=== PATIENT | female | born 1975 | race Caucasian/White ===

== ENCOUNTER 2018-08-21 20:30 | Emergency (ER) | payer OTHER ==
[~2018-08-21] VITALS: Ht 157.5 cm; Wt 88.0 kg
[2018-08-21 20:32] VITALS: BP 140/85
[2018-08-21] MEDS ORDERED: DEXAMETHASONE 4 MG TABLET PO ONE (22:30)
[2018-08-21] MEDS ORDERED: PRED20TA PO (22:33)
--- NOTE | 2018-08-21 22:33 | PHYS DOC ---
Past Medical History Past Medical History: No Pertinent History (YOHANNES AGUIAR APRN) Past Surgical History: No Surgical History Additional Past Surgical Histo: Pt denies. (YOHANNES AGUIAR APRN) Alcohol Use: None Drug Use: None (YOHANNES AGUIAR APRN) Adult General Chief Complaint Chief Complaint: ITCHING HPI HPI Patient is a 43 year old female presents with a chief complaint of itching. The patient states that she was building a deck on Wednesday and is allergic to certain types a wood, started itching. The patient states the itching has gotten worse today and rates the itching has 3 out of 10 currently after she took a Benadryl 25 mg at home around 8:30. However before that the itching is 9 out of 10 in severity. The location of the itching which also has a rash is located on left arm, bilateral knees and legs, and chest. Also has rash on abdomen. (YOHANNES AGUIAR APRN) Review of Systems Review of Systems Constitutional: Denies fever or chills [] Eyes: Denies change in visual acuity, redness, or eye pain [] HENT: Denies nasal congestion or sore throat [] Respiratory: Denies cough or shortness of breath [] Cardiovascular: No additional information not addressed in HPI [] GI: Denies abdominal pain, nausea, vomiting, bloody stools or diarrhea [] : Denies dysuria or hematuria [] Musculoskeletal: Denies back pain or joint pain [] Integument: Reports rash that itches Neurologic: Denies headache, focal weakness or sensory changes [] Endocrine: Denies polyuria or polydipsia [] Complete systems were reviewed and found to be within normal limits, except as documented in this note. (YOHANNES AGUIAR APRN) Current Medications Current Medications Current Medications Medications (Trade) Dose Ordered Sig/David Start Time Stop Time Status Last Admin Dose Admin Dexamethasone (Decadron) 10 mg 1X ONCE 08/21/18 22:30 08/21/18 22:31 DC 08/21/18 22:25 10 MG (STONE BARBOSA MD) Allergies Allergies Allergies Coded Allergies Type Severity Reaction Last Updated Verified cephalexin Allergy Unknown 08/21/18 Yes (STONE BARBOSA MD) Physical Exam Physical Exam Constitutional: Well developed, well nourished, no acute distress, non-toxic appearance. [] HENT: Normocephalic, atraumatic, bilateral external ears normal, oropharynx moist, no oral exudates, nose normal. [] Eyes: PERRLA, EOMI, conjunctiva normal, no discharge. [] Neck: Normal range of motion, no tenderness, supple, no stridor. [] Cardiovascular:Heart rate regular rhythm, no murmur [] Lungs & Thorax: Bilateral breath sounds clear to auscultation [] Skin: Warm, dry, hives diffusely body wide. Extremities: No tenderness, no cyanosis, no clubbing, ROM intact, no edema. [] Neurologic: Alert and oriented X 3, normal motor function, normal sensory function, no focal deficits noted. [] Psychologic: Affect normal, judgement normal, mood normal. [] (YOHANNES AGUIAR APRN) Current Patient Data Vital Signs Vital Signs Date Time Temp Pulse Resp B/P (MAP) Pulse Ox O2 Delivery O2 Flow Rate FiO2 08/21/18 20:32 98.3 80 16 140/85 (103) 99 Room Air 98.3 (STONE BARBOSA MD) EKG EKG [] (YOHANNES AGUIAR APRN) Radiology/Procedures Radiology/Procedures [] (YOHANNES AGUIAR APRN) Course & Med Decision Making Course & Med Decision Making Pertinent Labs and Imaging studies reviewed. (See chart for details) Appears to be having allergic reaction. Will give dexamethasone in ER. Will send home with script for prednisone. Will recommend to take another benadryl before bed. Patient is agreeable. (YOHANNES AGUIAR APRN) Course & Med Decision Making Staff Physician Addendum: I was working in the ER during the course of this patient's visit. I was available for consultation as needed, but I was not directly involved in the care of this patient. (STONE BARBOSA MD) Dragon Disclaimer Dragon Disclaimer This electronic medical record was generated, in whole or in part, using a voice recognition dictation system. (YOHANNES AGUIAR APRN) Departure Departure Impression: Primary Impression: Allergic reaction Disposition: HOME, SELF-CARE Condition: STABLE Referrals: ROXIE HANNA APRN (PCP) Patient Instructions: Itching-Brief Additional Instructions: Thank you for visiting [facility]. We appreciate you trusting us with your care. If any additional problems come up don't hesitate to return to visit us. Please follow up with your primary care provider so they can plan additional care if needed and know about the problem that you had. If symptoms worsen come back to the Emergency Department. Any concerning symptoms that start such as chest pain, shortness of air, weakness or numbness on one side of the body, running high fevers or any other concerning symptoms return to the ER. Please fill your medications at any pharmacy and follow the prescription instructions. Scripts Prednisone (PREDNISONE) 20 Mg Tablet 40 MG PO DAILY for 5 Days, #10 TAB Prov: YOHANNES AGUIAR APRN 08/21/18 Problem Qualifiers Primary Impression: Allergic reaction Encounter type: initial encounter Qualified Codes: T78.40XA - Allergy, unspecified, initial encounter YOHANNES AGUIAR APRN Aug 21, 2018 22:33 STONE BARBOSA MD Aug 22, 2018 18:19
== END 2018-08-21 22:45 | disposition home or self-care (01) ==
LOC: ER 20:30
DX: L50.0 Allergic urticaria (principal); Z88.1 Allergy status to other antibiotic agents
CPT/HCPCS: 99283; J8540